=== PATIENT | female | born 1935 | race Caucasian/White ===

== ENCOUNTER 2016-08-21 06:05 | Inpatient (IN) | payer OTHER, BC ==
[2016-07-19 11:15] VITALS: BMI 25.0
--- NOTE | 2016-07-19 11:50 | PAT Medication Instructions ---
Service Date Jul 19, 2016. 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 Latanoprost (Xalatan 0.005% Oph Sravani), 1 DROPS OP HS Multivitamin (Multivitamin), 1 TAB PO QAM Omeprazole (Prilosec), 20 MG PO HS Polyethylene Glycol 3350 (Miralax), 17 GM PO PRN Simvastatin (Zocor), 20 MG PO HS [Timolol Oph], 1 DROP OPB QAM Medication Instructions For Your Scheduled Surgery - Hold the following medications the morning of surgery: Cholecalciferol (Vitamin D3), 1 TAB PO QAM Multivitamin (Multivitamin), 1 TAB PO QAM Docusate Sodium (Colace), 1 CAP PO PRN Ibuprofen (Advil), 400 MG PO TID PRN Polyethylene Glycol 3350 (Miralax), 17 GM PO PRN - Take the following medications the morning of surgery: [Timolol Oph], 1 DROP OPB QAM - Take the following medications as scheduled the night before surgery: Simvastatin (Zocor), 20 MG PO HS Latanoprost (Xalatan 0.005% Oph Sravani), 1 DROPS OP HS Omeprazole (Prilosec), 20 MG PO HS Docusate Sodium (Colace), 1 CAP PO PRN Ibuprofen (Advil), 400 MG PO TID PRN Polyethylene Glycol 3350 (Miralax), 17 GM PO PRN Nothing to eat or drink after midnight If you have any questions please call us at [phone] or [phone] or [phone]
[2016-07-19 12:50] LABS: BASO % 0.2 %; BASO ABS # 0.01 K/uL (0-0.2); COMPLETE YES; EOS % 1.7 %; HEMATOCRIT 37.2 % (37-47); IG% 0.2 %; LYMPH % 28.7 %; LYMPH ABS # 1.73 K/uL (1.2-3.4); MEAN CELL VOLUME 91.4 fL (80-100); MEAN CORPUSCULAR HEMOGLOBIN 30.2 pg (25-34); MEAN CORPUSCULAR HGB CONC 33.1 g/dl (32-36); MEAN PLATELET VOLUME 8.6 fL (7.4-10.4); MONO % 11.6 %; NEUT % 57.6 %; PLATELET COUNT 269 K/uL (130-400); RED BLOOD COUNT 4.07 M/uL (4.2-5.4); WHITE BLOOD COUNT 6.03 K/uL (4.8-10.8)
[2016-07-19 12:54] LABS: URINE APPEARANCE CLEAR (CLEAR); URINE BILIRUBIN NEG (NEG); URINE COLOR YELLOW; URINE NITRITE NEG (NEG); URINE SPECIFIC GRAVITY 1.014 (1.000-1.030); UROBILINOGEN NEG (NEG); ZZUR CULT IF INDIC CLEAN CATCH NO
[2016-07-19 12:55] LABS: ESTIMATED AVERAGE GLUCOSE 117 mg/dl; HA1C FLAG Normal (Normal)
[2016-07-19 13:01] LABS: PROTHROMBIN TIME (PATIENT) 11.1 SECONDS (9.0-12.0)
[2016-07-19 13:11] LABS: MANUAL MICROSCOPIC REQUIRED? NO; REVIEW REQ? NO
[2016-07-19 14:34] LABS: BUN/CREATININE RATIO 20.9 (10-20); CREATININE 0.67 mg/dl (0.60-1.20); POTASSIUM 4.3 mmol/L (3.5-5.1)
[2016-07-19 14:54] LABS: CALCIUM 8.7 mg/dl (8.5-10.1)
--- NOTE | 2016-08-20 10:16 | History and Physical ---
History & Physical Date & Time of Service: Aug 20, 2016 at 10:08 Chief Complaint: Right Shoulder Rotator Cuff Arthropathy Primary Care Physician: Christy Robins History of Present Illness Source: patient Chronic Rt shoulder pain and weakness, failed conservative treatment. Dx with RC arthropathy and GH arthritis. 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), 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 Level of Care Med/Surg Advanced Directives Existing Living Will: Yes Existing Power of Caustic Preparer: Yes Note Proceed w Rt shoulder Reversed TSA, biceps tenodesis.
[~2016-08-21] VITALS: Ht 152.4 cm; Wt 57.8 kg
[2016-08-21] VITALS (10 sets, daily range): BP systolic 105–145; BP diastolic 67–77; PULSE 60–90; TEMP 36.4–36.7; O2SAT 94–96; Ht 152.4 cm; Wt 57.8 kg
[~2016-08-21 06:05] MED LIST: ACETAMINOPHEN 500 MG TAB PO SCH; CEFAZOLIN 1000MG/55 ML D5W 55 ML IV SCH; CHOL1000 PO; CeleBREX 200 MG CAP PO SCH; DEXAMETHASONE 4 MG TAB PO SCH; DOCU-94 PO; FAMOTIDINE 20 MG TAB PO SCH; GABAPENTIN 300 MG CAP PO SCH; IBUP-1050 PO; LACTATED RINGER'S 1000ML 1,000 ML IV SCH; LATA0.5S OP; METOCLOPRAMIDE HCL 10 MG TAB PO SCH; MULT-506 PO; POLY335019 PO; PRLSR20 PO; SIMV20TA2 PO; [UNRECOGNIZED DRUG - OTHER] OPB
[2016-08-21] MEDS ORDERED: ROPIVACAINE 0.5% 5 MG/ML 30 ML VIAL ONE (06:37)
[2016-08-21] MEDS: LACTATED RINGER'S 1000ML IV SCH ×2 (06:44→08:40)
--- NOTE | 2016-08-21 07:16 | History & Physical Bridge Note ---
H&P Re-Evaluation Bridge Note: I have examined the patient, reviewed the History & Physical and in the interval since the performance of the History & Physical I have noted the following changes of clinical significance: No changes noted
[2016-08-21] MEDS ORDERED: ROCURONIUM BROMIDE 10 MG/ML 5 ML VIAL ONE ×2 (07:54→08:49)
[2016-08-21] MEDS ORDERED: GLYCOPYRROLATE INJ 0.2 MG/ML VIAL ONE ×2 (07:54→08:49)
[2016-08-21] MEDS ORDERED: PROPOFOL IV EMULSION 10 MG/ML 20 ML VIAL IV ONE ×2 (07:54→08:49)
[2016-08-21] MEDS ORDERED: NEOSTIGMINE METHYLSULFATE 5 MG/5 ML SYR ONE ×2 (07:54→08:49)
[2016-08-21] MEDS ORDERED: LIDOCAINE HCL 2% 2 ML VIAL (20MG/ML) ONE ×2 (07:54→08:49)
[2016-08-21] MEDS ORDERED: DEXAMETHASONE SOD INJ 4 MG/ML VIAL ONE ×2 (07:54→08:49)
[2016-08-21] MEDS ORDERED: ONDANSETRON INJ 2 MG/ML 2 ML VIAL ONE ×2 (07:54→08:49)
[2016-08-21] MEDS ORDERED: FENTANYL CITRATE INJ 50 MCG/1 ML 2 ML VIAL ONE ×2 (07:55→08:49)
[2016-08-21] MEDS ORDERED: MIDAZOLAM HCL 1 MG/ML 2ML VIAL ONE ×3 (07:55→08:49)
[2016-08-21] MEDS ORDERED: BACITRACIN 50000 UNIT VIAL ONE (09:00)
[2016-08-21] MEDS ORDERED: SUCCINYLCHOLINE CHLORIDE 20 MG/ML 10 ML VIAL IV ONE (10:36)
[2016-08-21] MEDS ORDERED: LARYING-O-JET KIT (LTA) ONE ×2 (11:19)
--- NOTE | 2016-08-21 11:32 | [facility] Post Operative Brief Note ---
Immediate Operative Summary Operative Date Aug 21, 2016. Pre-Operative Diagnosis Right shoulder rotator cuff arthropathy, arthritis,biceps tenosynovitis Post-Operative Diagnosis same ,rotator cuff tear and bursitis subacromial Procedure(s) Performed Right Reverse Total Shoulder Arthroplasty Surgeon Dr. Dowling Tax Representative Surgeon(s) Noé Kuhn PA-C Estimated Blood Loss 50cc Findings rotator cuff tendinopathy with small rotator cuff tear marked subacromial bursitis Specimens A. Right humeral head Drains 2 hemovac Anesthesia general and regional Complication(s) None Disposition Recovery Room / PACU
[2016-08-21] MEDS ORDERED: MAGNESIUM HYDROXIDE SUSP 30 ML UDC PO PRN (11:45)
[2016-08-21] MEDS ORDERED: POLYETHYLENE (MIRALAX) 17 GM PACK PO PRN (11:45)
[2016-08-21] MEDS ORDERED: BISACODYL 10 MG SUPP PR PRN (11:45)
[2016-08-21] MEDS ORDERED: ONDANSETRON INJ 2 MG/ML 2 ML VIAL IV PRN (11:45)
[2016-08-21] MEDS ORDERED: SOD PHOSPHATE/SOD BIPHOSPHATE ENEMA 132 ML BTL PR PRN (11:45)
[2016-08-21] MEDS ORDERED: ZOLPIDEM TARTRATE 5 MG TAB PO PRN (11:45)
[2016-08-21] MEDS ORDERED: NALOXONE HCL 0.4 MG/1 ML VIAL/CARP IV PRN (11:45)
--- NOTE | 2016-08-21 12:21 | DIAGNOSTIC IMAGING REPORT ---
RIGHT SHOULDER MIN 2 VIEWS ROUTINE HISTORY:80 yearsFemale[age] shoulder surgery Right COMPARISON: None available. TECHNIQUE: Postoperative portable frontal and Y views of the scapula. FINDINGS: There is been recent reverse right total shoulder arthroplasty which appears to be in satisfactory position. There is no periprosthetic fracture identified. Surgical drains and expected soft tissue swelling and deep tissue air is seen about the shoulder along with skin nohemy. The imaged right lung field appears clear. IMPRESSION: Status post reverse total right shoulder arthroplasty with expected postoperative findings. The above report was generated using voice recognition software. It may contain grammatical, syntax or spelling errors. Electronically signed by: Jaciel Dee M.D. 08/21/2016 12:19 PM Dictated Date/Time: 08/21/2016 12:17 PM
--- NOTE | 2016-08-21 12:39 | Anesthesiology Progress Note ---
Anesthesia Post Op Note Date & Time Aug 21, 2016 at 12:39 Vital Signs Pain Intensity: 0 Vital Signs Past 12 Hours Date Time Temp Pulse Resp B/P (MAP) Pulse Ox O2 Delivery O2 Flow Rate FiO2 08/21/16 12:33 83 20 08/21/16 12:33 82 20 97 08/21/16 12:32 108/50 08/21/16 12:28 79 20 08/21/16 12:28 78 20 98 08/21/16 12:26 125/75 08/21/16 12:23 85 23 97 08/21/16 12:23 80 23 08/21/16 12:22 82 23 97 08/21/16 12:22 86 23 08/21/16 12:21 125/71 08/21/16 12:17 75 18 95 08/21/16 12:17 83 18 08/21/16 12:16 125/78 08/21/16 12:12 74 21 08/21/16 12:12 77 21 98 08/21/16 12:11 116/85 08/21/16 12:07 36.6 84 20 119/85 (92) 99 Mask 10 08/21/16 12:07 86 20 08/21/16 12:07 86 20 98 08/21/16 12:06 119/80 08/21/16 12:02 87 19 08/21/16 12:02 86 19 98 08/21/16 12:01 134/78 08/21/16 11:58 87 17 08/21/16 11:58 87 17 99 08/21/16 11:56 137/78 08/21/16 11:53 86 21 100 08/21/16 11:53 87 21 08/21/16 11:51 140/81 08/21/16 11:48 90 22 99 08/21/16 11:48 90 22 08/21/16 11:46 139/81 08/21/16 11:44 139/78 08/21/16 11:43 93 99 08/21/16 11:43 36.6 93 18 139/78 98 Mask 10 08/21/16 11:43 93 08/21/16 07:00 36.6 60 20 137/76 96 Room Air Notes Mental Status: alert / awake / arousable, participated in evaluation Pt Amnestic to Procedure: Yes Nausea / Vomiting: adequately controlled Pain: adequately controlled Airway Patency, RR, SpO2: stable & adequate BP & HR: stable & adequate Hydration State: stable & adequate Anesthetic Complications: no major complications apparent
[2016-08-21] MEDS: D5W AND 1/2NSS + 20MEQ KCL 1,000 ML IV SCH ×2 (13:55→23:38)
--- NOTE | 2016-08-21 16:22 | Medical Consult ---
Consultation Date of Consultation: Aug 21, 2016. Attending Physician: Perry Dowling M.D. Reason for Consultation: Medical Follow up following Right Shoulder5 Arthroplasty History of Present Illness &( years old Female without significant PMH and ongoing pain in right shoulder for a while.She underwent right shoulder arthroplasty today by Dr Suarez. She has had pre-op evaluation by her PCP and Pre-op tests results were reviewed by me . Following surgery she denies to have any significant symptoms-no CP ,palpitation ,SOB,No abdominal pain,nausea and or vomiting.Denies any problem with urine and or bowel habit. No Headache,blurred vision and no numbness and or tingling in extremities Past Medical/Surgical History Osteoarthritis,Osteoporosis,Hyperlipidemia,GERD,Abnormality of Gait Surgery: ARTHROPLASTY KNEE [place] [facility] [place] COLONOSCOPY, DIAGNOSTIC (RECTUM) N/A 10/06/2015 diverticulosis sigmoid colon/internal hemorrhoids/no recall d/t age/COLONOSCOPY FLEXIBLE PROXIMAL DIAGNOSTIC performed by Dell Cronin MD at ENDOSCOPY [facility] FEMUR FX, REPAIR 06/2008 [facility] [place]NEE ARTHROSCOPY, DIAGNOSTIC Left knee arthroscopy in 1979's and REMOVAL OF HEEL SPUR 1982 Heel Spur Removal REMOVAL OF TONSILS, UNDER AGE 13 REMOVE KNEE CARTILAGE, MED/LATERAL Knee meniscectomy, arthroscopic REMOVE TONSILS & ADENOIDS, UNDER 13 REPAIR BLADDER DEFECT resuspension REPAIR RUPTURED ROTATOR CUFF, ACUTE 1996 Rotator cuff repair TOTAL HYSTERECTOMY Social History Smoking Status: Former Smoker Alcohol Use: none Drug Use: none Marital Status: Allergies Coded Allergies: Shrimp (Verified Allergy, Unknown, UNKNOWN, 08/21/16) Morphine (Verified Adverse Reaction, Mild, ABDOMINAL PAIN, 08/21/16) Current Inpatient Medications Current Inpatient Medications Medications (Trade) Dose Ordered Sig/Berta Route Start Time Stop Time Status Last Admin Dose Admin Lactated Ringer's 1,000 ml @ 60 mls/hr [id number] IV 08/21/16 06:00 08/21/16 22:39 Cefazolin Sodium 55 ml @ 100 mls/hr PREOP IV 08/21/16 06:00 08/21/16 18:00 08/21/16 09:02 100 MLS/HR Acetaminophen (Tylenol Tab) 1,000 mg PREOP PO 08/21/16 06:00 08/21/16 18:00 08/21/16 07:19 1,000 MG Celecoxib (CeleBREX CAP) 200 mg PREOP PO 08/21/16 06:00 08/21/16 18:00 08/21/16 07:20 200 MG Dexamethasone (Decadron Tab) 8 mg PREOP PO 08/21/16 06:00 08/21/16 18:00 08/21/16 07:40 8 MG Famotidine (Pepcid Tab) 20 mg PREOP PO 08/21/16 06:00 08/21/16 18:00 08/21/16 07:20 20 MG Gabapentin (Neurontin Cap) 300 mg PREOP PO 08/21/16 06:00 08/21/16 18:00 08/21/16 07:19 300 MG Metoclopramide HCl (Reglan Tab) 10 mg PREOP PO 08/21/16 06:00 08/21/16 18:00 08/21/16 07:19 10 MG Lactated Ringer's 1,000 ml @ 15 mls/hr Q24H IV 08/21/16 06:00 08/21/16 18:00 08/21/16 06:43 15 MLS/HR Cholecalciferol (Vitamin D Tab) 1,000 inter.unit QAM PO 08/22/16 09:00 09/21/16 08:59 Latanoprost (Xalatan Oph Soln) 1 drops HS OP 08/21/16 21:00 09/20/16 20:59 Simvastatin (Zocor Tab) 20 mg HS PO 08/21/16 21:00 09/20/16 20:59 Polyethylene (Miralax Powder Packet) 17 gm DAILY PRN PO 08/21/16 11:45 09/20/16 11:44 Timolol Maleate (Timoptic 0.5% Oph Soln) 1 drops QAM OPB 08/22/16 09:00 09/21/16 08:59 Diphenhydramine HCl (Benadryl Cap) 25 mg Q8 PRN PO 08/21/16 11:45 09/20/16 11:44 Zolpidem Tartrate (Ambien Tab) 5 mg HSZ PRN PO 08/21/16 11:45 09/20/16 11:44 Ondansetron HCl (Zofran Inj) 4 mg Q6H PRN IV 08/21/16 11:45 09/20/16 11:44 Pantoprazole Sodium (Protonix Tab) 40 mg QAM PO 08/22/16 09:00 09/21/16 08:59 Potassium Chloride/Dextrose/ Sod Cl 1,000 ml @ 100 mls/hr Q10H IV 08/21/16 14:00 08/22/16 13:59 08/21/16 13:55 100 MLS/HR Oxycodone HCl (Roxicodone Immediate Rel Tab) `1-2 TABS FOR PAIN `1 TAB... Q4H PRN PO 08/21/16 11:45 09/04/16 11:44 Acetaminophen (Tylenol Tab) 1,000 mg Q8 PO 08/21/16 22:00 09/20/16 21:59 Naloxone HCl (Narcan Inj) 0.1 mg Q2M PRN IV 08/21/16 11:45 09/20/16 11:44 Magnesium Hydroxide (Milk Of Magnesia Susp) 30 ml Q6H PRN PO 08/21/16 11:45 09/20/16 11:44 Bisacodyl (Dulcolax Supp) 10 mg DAILY PRN MD 08/21/16 11:45 09/20/16 11:44 Sodium Biphosphate/ Sodium Phosphate (Fleet Enema) 132 ml DAILY PRN MD 08/21/16 11:45 09/20/16 11:44 Docusate Sodium (coLACE CAP) 100 mg BID PO 08/21/16 21:00 09/20/16 20:59 Multivitamins (Multivitamin Tab) 1 tab DAILY PO 08/22/16 09:00 09/21/16 08:59 Cefazolin Sodium 1000 mg/Dextrose 55 ml @ 100 mls/hr Q8H IV 08/21/16 18:00 08/22/16 02:32 Hydromorphone HCl (Dilaudid Inj) 0.5 mg Q3H PRN IV 08/21/16 11:45 09/04/16 11:44 Physical Exam Date Time Temp Pulse Resp B/P (MAP) Pulse Ox O2 Delivery O2 Flow Rate FiO2 08/21/16 15:45 36.4 74 16 117/76 (90) 96 Nasal Cannula 2.0 08/21/16 14:43 36.4 90 16 112/69 (83) 96 Nasal Cannula 2.0 08/21/16 13:54 36.7 80 18 112/75 (87) 96 Nasal Cannula 2.0 08/21/16 13:15 36.7 67 18 114/67 (83) 95 Nasal Cannula 2.0 08/21/16 12:45 95 Nasal Cannula 2.0 08/21/16 12:45 95 Nasal Cannula 2.0 08/21/16 12:33 83 20 08/21/16 12:33 82 20 97 08/21/16 12:32 108/50 08/21/16 12:28 79 20 08/21/16 12:28 78 20 98 08/21/16 12:26 125/75 08/21/16 12:23 85 23 97 08/21/16 12:23 80 23 08/21/16 12:22 82 23 97 08/21/16 12:22 86 23 08/21/16 12:21 125/71 08/21/16 12:17 75 18 95 08/21/16 12:17 83 18 08/21/16 12:16 125/78 08/21/16 12:12 74 21 08/21/16 12:12 77 21 98 08/21/16 12:11 116/85 08/21/16 12:07 36.6 84 20 119/85 (92) 99 Mask 10 08/21/16 12:07 86 20 08/21/16 12:07 86 20 98 08/21/16 12:06 119/80 08/21/16 12:02 87 19 08/21/16 12:02 86 19 98 08/21/16 12:01 134/78 08/21/16 11:58 87 17 08/21/16 11:58 87 17 99 08/21/16 11:56 137/78 08/21/16 11:53 86 21 100 08/21/16 11:53 87 21 08/21/16 11:51 140/81 08/21/16 11:48 90 22 99 08/21/16 11:48 90 22 08/21/16 11:46 139/81 08/21/16 11:44 139/78 08/21/16 11:43 93 99 08/21/16 11:43 36.6 93 18 139/78 98 Mask 10 08/21/16 11:43 93 08/21/16 07:00 36.6 60 20 137/76 96 Room Air General Appearance: no apparent distress Head: normocephalic, atraumatic Eyes: normal inspection ENT: normal ENT inspection Neck: supple Respiratory/Chest: chest non-tender, lungs clear Cardiovascular: regular rate, rhythm, no edema Abdomen/GI: normal bowel sounds, non tender, soft Back: normal inspection, no CVA tenderness Extremities/Musculoskelatal: normal inspection (Except Right shoulder is bandaged s/p arthroplasty) Neurologic/Psych: no motor/sensory deficits, alert, normal mood/affect Skin: normal color Assessment & Plan S/P Right Total Right Shoulder replacement POD #0 Management as per Ortho Clinically remains stable Hyperlipidemia Continue Statin GERD Asymptomatic Continue Prilosec OA/Osteoporosis Continue current medication Medically stable Will chest Labs tomorrow Morning
--- NOTE | 2016-08-21 16:46 | [facility] Operative Report ---
Operative Report Operative Date Aug 21, 2016. Pre-Operative Diagnosis Right shoulder rotator cuff arthropathy, arthritis,biceps tenosynovitis Post-Operative Diagnosis same, rotator cuff tear and subacroimial bursitis Procedure(s) Performed right shoulder reversed total shoulder replacement,biceps tenodesis,excision subacromial bursa,bone grafting of humeral bone cyst with humeral head autograft Surgeon Dr. Dowling Weaver Apprentice Surgeon(s) Noé Kuhn PA-C Estimated Blood Loss 50cc Findings Grade 4 DJD glenohumeral joint rotator cuff tendinopathy with full thickness rotator cuff tear with fluid extending through tear into a large subacromial bursal effusion with subacromial bursitis with chronic tenosynovitis biceps tendon with degenerative large bone cyst in the humeral head extending into the proximal metaphysis Specimens A. Right humeral head Drains 2 hemovac Anesthesia general and regional Complication(s) None Disposition Recovery Room / PACU Indications Severe DJD glenohumeral joint rotator cuff tendinopathy biceps tenosynovitis chronic Description of Procedure The patient was taken to the operating room and anesthetized under regional block and general anesthetic. The patient was positioned on the operating table in a 30 beachchair position with a towel roll under the medial border of the right scapula. The arm was draped free to be able to manipulate the shoulder as needed. The right upper extremity was prepped and draped in usual sterile fashion. Exam demonstrated [id number] crepitation glenohumeral joint limited range of motion with 70 of abduction and forward elevation with external rotation to 30. An anterior deltopectoral approach was performed. A longitudinal incision was made in the deltopectoral interval. The skin was incised. Subcutaneous flaps were elevated off the fascia. The cephalic vein was dissected out and retracted lateral with the deltoid. The clavipectoral fascia was divided at the lateral margin of the conjoined tendon and extended up to the CA ligament. The following findings were noted there was a large subacromial bursal effusion overlying a full-thickness rotator cuff tear which communicated with the glenohumeral joint. There was rotator cuff tendinopathy of the infraspinatus and the tear was in the posterior supraspinatus. There was significant biceps tenosynovitis noted the subscapularis tendon was still intact. Intra-articular findings demonstrated grade 4 DJD: Humeral joint with eburnated bone humeral head. There is also a large cyst in humeral head extending into the metaphysis which was identified later in the case. This appeared to be a benign degenerative lesion.. The upper centimeter of the pectoralis was released for inferior exposure. The biceps tendon was tenodesed to the pectoralis tendon with #2 FiberWire. The proximal biceps was resected. The subscapularis tendon was taken down off the lesser tuberosity using a subperiosteal dissection. A #1 Vicryl traction suture was placed into the free end of the subscapularis tendon and capsule. The subscapular muscle fibers were split longitudinally at the level of the circumflex vessels. The circumflex vessels were identified and tied off with silk ties and divided laterally. A Kitner elevator was used to free up the inferior fibers of the subscapularis off of the capsule. The capsule was divided with Singh scissors down to the glenoid released off the anterior glenoid and the rotator interval was released to meet the capsular release and a 360 release of the subscapularis was accomplished. We did identify the axillary nerve tug test and protected with the blunt Hohmann retractor. A Fukuda retractor was placed into the joint. Glenoid findings demonstrated concentric wear of the glenoid with severe arthritic changes.. The labrum and biceps tendon was resected. An anterior-inferior and posterior inferior capsular release were performed with electrocautery and a Oleary elevator on bone with the nerve protected inferiorly by the retractor. Attention was then taken to the humeral preparation. The cutting guide was placed into the humeral head. It was positioned at 20 of retroversion. Oscillating saw was used to resect the humeral head giving the cut above the level of the posterior rotator cuff insertion site. Some of the supra-space tendon was released for exposure. The humeral head was then retracted posterior to the glenoid. The glenoid was sized for a 36 mm glenoid sphere and a 25 mm baseplate. The guide for the baseplate was positioned in a 10 inferior tilt and the central drill hole was made. The reamer for the 25 mm baseplate was used. The central drill was widened for the peg. The 25 mm baseplate was impacted into position. The plate was transfixed with superior and inferior locking screws and anterior and posterior compression screws with stable fixation. The fan reamer was used for the 36 millimeter glenoid sphere. After irrigation the glenoid sphere was impacted onto the baseplate and the screw was tightened. Fixation was assessed is stable. Humeral preparation was then performed. A centralizing awl was used followed by broaches up to a size 4 long stem. This had the appropriate fit and fill. The trial stem was left in place wi A +0 mm reversed tray with high offset was then placed. It was rotated into appropriate position. A trial reduction was performed. A 6 mm trial insert demonstrated good stability and no shuck. The trials were removed. 3 drill holes are made into the harder bone in the bicipital groove area and 3 #5 FiberWire sutures were placed transosseously. The canal was irrigated with antibiotic solution with bacitracin. The final component was assembled. The final component was the Ascend flex long PTC humeral stem size 4b. Prior to fully inserting the stem used bone graft harvested from the humeral head and impacted into the large cystic areas in the metaphysis to get a better press-fit fixation This was then impacted into the humerus with a tight press-fit. It was reduced to the glenoid sphere. Stability was verified. Subscapularis was repaired with the # 5 FiberWire sutures using Jeff-Ken suture technique. Lateral row soft tissue repair was performed with #2 FiberWire [id number] sutures. Some of the sutures of the upper subscapularis were passed through the supraspinatus and anterior infraspinatus as well to repair the anterior to the posterior cuff tissue. The pectoralis was repaired with #2 FiberWire [id number] sutures reinforcing the biceps tendon tenodesis. The arm was taken through a range of motion which demonstrated 120 forward elevation 40 external rotation at 45 of abduction and 90 of abduction.. The implant was stable through this range of motion tested. The wound was copiously irrigated. 2 Hemovac drains were placed. The deltopectoral interval was closed with [id number] #1 Vicryl sutures. The subcutaneous tissues were closed with 2-0 Vicryl sutures. The skin was closed with nohemy. Sterile dressings were applied and a shoulder immobilizer. Noé FOUNTAIN, My physician catering administrative assistant assisted in the procedure to the entire procedure including patient positioning arm positioning prepping and draping soft tissue retraction insert management suture management and perform the subcutaneous and skin closure and will dissipate in the postoperative care of the patient. I attest to the content of the Intraoperative Record and any orders documented therein. Any exceptions are noted below.
[2016-08-21] MEDS: CEFAZOLIN IV 1,000 MG in DEXTROSE 5% 50ML 50 ML IV SCH (18:03)
[2016-08-21] MEDS: DOCUSATE SODIUM 100 MG CAP PO SCH (21:09)
[2016-08-21] MEDS: SIMVASTATIN 20 MG TAB PO SCH (21:09)
[2016-08-21] MEDS: LATANOPROST 0.005% OP SOLN 2.5 ML BTL OP SCH (21:19)
[2016-08-21] MEDS: ACETAMINOPHEN 500 MG TAB PO SCH (21:40)
[2016-08-21] MEDS ORDERED: PANTOprazole SOD 40 MG TAB PO SCH (22:00)
[2016-08-22] VITALS (7 sets, daily range): BP systolic 109–130; BP diastolic 64–77; PULSE 65–82; TEMP 36.4–36.7; O2SAT 91–95
[2016-08-22] MEDS ORDERED: NURSING VERBAL MED ORDER ONE (01:37)
[2016-08-22] MEDS: CEFAZOLIN IV 1,000 MG in DEXTROSE 5% 50ML 50 ML IV SCH (01:45)
[2016-08-22] MEDS: OXYCODONE HCL IR 5 MG TAB (IMMEDIATE RELEASE) PO PRN ×4 (01:50→21:41)
[2016-08-22] MEDS: HYDROmorphone INJ 0.5 MG/0.5 ML SYR IV PRN ×2 (06:04→13:21)
[2016-08-22] MEDS: ACETAMINOPHEN 500 MG TAB PO SCH ×3 (06:04→21:32)
[2016-08-22 06:15] LABS: HEMATOCRIT 34.8 % (37-47); MEAN CELL VOLUME 89.7 fL (80-100); MEAN CORPUSCULAR HEMOGLOBIN 30.2 pg (25-34); MEAN CORPUSCULAR HGB CONC 33.6 g/dl (32-36); MEAN PLATELET VOLUME 8.4 fL (7.4-10.4); PLATELET COUNT 231 K/uL (130-400); RED BLOOD COUNT 3.88 M/uL (4.2-5.4); WHITE BLOOD COUNT 14.46 K/uL (4.8-10.8)
[2016-08-22 06:47] LABS: BUN/CREATININE RATIO 15.5 (10-20); CREATININE 0.77 mg/dl (0.60-1.20); POTASSIUM 4.3 mmol/L (3.5-5.1)
[2016-08-22] MEDS: DOCUSATE SODIUM 100 MG CAP PO SCH ×2 (07:50→21:31)
[2016-08-22] MEDS: CHOLECALCIFEROL 1000 INTER.UNIT TAB PO SCH (07:50)
[2016-08-22] MEDS: MULTIVITAMIN TAB PO SCH (07:50)
[2016-08-22] MEDS: TIMOLOL MALEATE 0.5% OP SOLN 5 ML BTL OPB SCH (07:50)
[2016-08-22] MEDS ORDERED: PANTOprazole SOD 40 MG TAB PO SCH ×2 (09:00→21:00)
--- NOTE | 2016-08-22 09:59 | Anesthesiology Progress Note ---
Anesthesia Post Op Note Date & Time Aug 22, 2016 at 09:58 Vital Signs Pain Intensity: 8.0 Vital Signs Past 12 Hours Date Time Temp Pulse Resp B/P (MAP) Pulse Ox O2 Delivery O2 Flow Rate FiO2 08/22/16 08:07 36.5 71 14 130/64 (86) 93 Room Air 08/22/16 08:02 95 Room Air 08/22/16 03:13 36.6 65 18 120/69 (86) 93 Room Air 08/21/16 23:30 Room Air 08/21/16 22:55 36.5 76 18 105/68 (80) 95 Room Air Notes Mental Status: alert / awake / arousable, participated in evaluation Pt Amnestic to Procedure: Yes Nausea / Vomiting: adequately controlled Pain: adequately controlled Airway Patency, RR, SpO2: stable & adequate BP & HR: stable & adequate Hydration State: stable & adequate Anesthetic Complications: no major complications apparent
--- NOTE | 2016-08-22 11:17 | Orthopedic Progress Note ---
Orthopedic Progress Note Date of Service Aug 22, 2016. Subjective Post OP Day: 1 Reports: feeling well, pain controlled w PO medications, Denies: complaints, chest pain, SOB, nausea / vomiting, light headedness, calf pain Objective calves soft nontender, N/V intact, capillary refill less than 2 sec., dressing C /D/I, A&O x3 Sling in tact, fingers mobile. Date Time Temp Pulse Resp B/P (MAP) Pulse Ox O2 Delivery O2 Flow Rate FiO2 08/22/16 11:06 93 Room Air 08/22/16 08:07 36.5 71 14 130/64 (86) 93 Room Air 08/22/16 08:02 95 Room Air 08/22/16 03:13 36.6 65 18 120/69 (86) 93 Room Air 08/21/16 23:30 Room Air 08/21/16 22:55 36.5 76 18 105/68 (80) 95 Room Air 08/21/16 19:52 36.6 87 16 145/77 (99) 94 Room Air 08/21/16 18:10 94 Room Air 08/21/16 15:45 36.4 74 16 117/76 (90) 96 Nasal Cannula 2.0 08/21/16 15:05 96 Nasal Cannula 2.0 08/21/16 14:43 36.4 90 16 112/69 (83) 96 Nasal Cannula 2.0 08/21/16 13:54 36.7 80 18 112/75 (87) 96 Nasal Cannula 2.0 08/21/16 13:15 36.7 67 18 114/67 (83) 95 Nasal Cannula 2.0 08/21/16 12:45 95 Nasal Cannula 2.0 08/21/16 12:45 95 Nasal Cannula 2.0 08/21/16 12:33 83 20 08/21/16 12:33 82 20 97 08/21/16 12:32 108/50 08/21/16 12:28 79 20 08/21/16 12:28 78 20 98 08/21/16 12:26 125/75 08/21/16 12:23 85 23 97 08/21/16 12:23 80 23 08/21/16 12:22 82 23 97 08/21/16 12:22 86 23 08/21/16 12:21 125/71 08/21/16 12:17 75 18 95 08/21/16 12:17 83 18 08/21/16 12:16 125/78 08/21/16 12:12 74 21 08/21/16 12:12 77 21 98 08/21/16 12:11 116/85 08/21/16 12:07 36.6 84 20 119/85 (92) 99 Mask 10 08/21/16 12:07 86 20 08/21/16 12:07 86 20 98 08/21/16 12:06 119/80 08/21/16 12:02 87 19 08/21/16 12:02 86 19 98 08/21/16 12:01 134/78 08/21/16 11:58 87 17 08/21/16 11:58 87 17 99 08/21/16 11:56 137/78 08/21/16 11:53 86 21 100 08/21/16 11:53 87 21 08/21/16 11:51 140/81 08/21/16 11:48 90 22 99 08/21/16 11:48 90 22 08/21/16 11:46 139/81 08/21/16 11:44 139/78 08/21/16 11:43 93 99 08/21/16 11:43 36.6 93 18 139/78 98 Mask 10 08/21/16 11:43 93 Laboratory Results 24 Hours: Test 08/22/16 05:30 Hematocrit 34.8 % Hemoglobin 11.7 g/dL Assessment & Plan Assessment: POD #1, Right reversed TSA, biceps tenodesis Plan: Limited PT/ OT as ordered D/C planning- Rehab As per medicine Inhouse Planning Pain Management: Morphine, PO Tylenol, Oxy IR DVT Prophylaxis: SCDs, ASA Discharge Planning Discharge Planning: home Pain Management: PO Tylenol, Oxy IR DVT Prophylaxis: TEDs, ASA
--- NOTE | 2016-08-22 17:05 | Progress Note ---
Internal Med Progress Note Date of Service: Aug 22, 2016. Provider Documentation: SUBJECTIVE: The patient was seen and examined Minimal pain in right Shoulder No other complaints OBJECTIVE: Vital Signs-as noted below Exam: General-no distress at rest Eyes-normal ENT-normal Neck-supple Lungs-clear to ausucltate bilaterally Heart-Regular Abdomen-Benign Extremities-No edema Neuro-AAOx3 Lab data as noted below. ASSESSMENT & PLAN: S/P Right Total Right Shoulder replacement POD #1 Management as per Ortho Clinically remains stable Awaiting placement Hyperlipidemia Continue Statin GERD Asymptomatic Continue Prilosec OA/Osteoporosis Continue current medication Medically stable Will chest Labs tomorrow Morning-WCC is slightly high-expected otherwise OK Vital Signs: Date Time Temp Pulse Resp B/P (MAP) Pulse Ox O2 Delivery O2 Flow Rate FiO2 08/22/16 15:37 36.7 82 18 109/77 (88) 95 Room Air 08/22/16 11:48 36.6 65 16 121/77 (92) 91 Room Air 08/22/16 11:06 93 Room Air 08/22/16 08:07 36.5 71 14 130/64 (86) 93 Room Air 08/22/16 08:02 95 Room Air 08/22/16 03:13 36.6 65 18 120/69 (86) 93 Room Air 08/21/16 23:30 Room Air 08/21/16 22:55 36.5 76 18 105/68 (80) 95 Room Air 08/21/16 19:52 36.6 87 16 145/77 (99) 94 Room Air 08/21/16 18:10 94 Room Air Lab Results: Results Past 24 Hours Test 08/22/16 05:30 Range/Units White Blood Count 14.46 4.8-10.8 K/uL Red Blood Count 3.88 4.2-5.4 M/uL Hemoglobin 11.7 12.0-16.0 g/dL Hematocrit 34.8 37-47 % Mean Corpuscular Volume 89.7 80-100 fL Mean Corpuscular Hemoglobin 30.2 25-34 pg Mean Corpuscular Hemoglobin Concent 33.6 32-36 g/dl RDW Standard Deviation 42.4 36.4-46.3 fL RDW Coefficient of Variation 13.0 11.5-14.5 % Platelet Count 231 130-400 K/uL Mean Platelet Volume 8.4 7.4-10.4 fL Sodium Level 138 136-145 mmol/L Potassium Level 4.3 3.5-5.1 mmol/L Chloride Level 106 98-107 mmol/L Carbon Dioxide Level 22 21-32 mmol/L Anion Gap 10.0 3-11 mmol/L Blood Urea Nitrogen 12 7-18 mg/dl Creatinine 0.77 0.60-1.20 mg/dl Est Creatinine Clear Calc Drug Dose 47.2 ml/min Estimated GFR () 85.1 Estimated GFR (Non- 73.4 BUN/Creatinine Ratio 15.5 10-20 Random Glucose 125 70-99 mg/dl Calcium Level 9.0 8.5-10.1 mg/dl
[2016-08-22] MEDS: LATANOPROST 0.005% OP SOLN 2.5 ML BTL OP SCH (21:30)
[2016-08-22] MEDS: SIMVASTATIN 20 MG TAB PO SCH (21:31)
[2016-08-23 05:43] VITALS: BP 125/78; PULSE 94; TEMP 36.4; O2SAT 90
[2016-08-23] MEDS: ACETAMINOPHEN 500 MG TAB PO SCH ×2 (05:49→13:48)
[2016-08-23 06:59] LABS: HEMATOCRIT 34.8 % (37-47); MEAN CELL VOLUME 92.1 fL (80-100); MEAN CORPUSCULAR HEMOGLOBIN 30.7 pg (25-34); MEAN CORPUSCULAR HGB CONC 33.3 g/dl (32-36); MEAN PLATELET VOLUME 8.8 fL (7.4-10.4); PLATELET COUNT 209 K/uL (130-400); RED BLOOD COUNT 3.78 M/uL (4.2-5.4); WHITE BLOOD COUNT 9.52 K/uL (4.8-10.8)
[2016-08-23 07:29] LABS: BUN/CREATININE RATIO 23.4 (10-20); CALCIUM 8.8 mg/dl (8.5-10.1); CREATININE 0.83 mg/dl (0.60-1.20); POTASSIUM 4.1 mmol/L (3.5-5.1)
[2016-08-23] MEDS: MULTIVITAMIN TAB PO SCH (07:33)
[2016-08-23] MEDS: DOCUSATE SODIUM 100 MG CAP PO SCH (07:33)
[2016-08-23] MEDS: CHOLECALCIFEROL 1000 INTER.UNIT TAB PO SCH (07:33)
[2016-08-23] MEDS: TIMOLOL MALEATE 0.5% OP SOLN 5 ML BTL OPB SCH (07:33)
[2016-08-23] MEDS: OXYCODONE HCL IR 5 MG TAB (IMMEDIATE RELEASE) PO PRN (07:36)
[2016-08-23 08:11] VITALS: BP 120/76; PULSE 86; TEMP 36.6; O2SAT 93
--- NOTE | 2016-08-23 08:24 | Orthopedic Progress Note ---
Orthopedic Progress Note Date of Service Aug 23, 2016. Subjective Post OP Day: 2 Reports: feeling well, pain controlled w PO medications, Denies: complaints, chest pain, SOB, nausea / vomiting, light headedness, calf pain Objective calves soft nontender, N/V intact, capillary refill less than 2 sec., incision C /D/I, A&O x3 Sling in tact, fingers mobile. Date Time Temp Pulse Resp B/P (MAP) Pulse Ox O2 Delivery O2 Flow Rate FiO2 08/23/16 08:11 36.6 86 18 120/76 (91) 93 Room Air 08/23/16 07:30 Room Air 08/23/16 05:43 36.4 94 16 125/78 (94) 90 Room Air 08/22/16 23:21 36.4 77 16 120/74 (89) 94 Room Air 08/22/16 19:15 Room Air 08/22/16 16:00 Room Air 08/22/16 15:37 36.7 82 18 109/77 (88) 95 Room Air 08/22/16 11:48 36.6 65 16 121/77 (92) 91 Room Air 08/22/16 11:06 93 Room Air Laboratory Results 24 Hours: Test 08/23/16 06:06 Hematocrit 34.8 % Hemoglobin 11.6 g/dL Assessment & Plan Assessment: POD #2, Right reversed TSA, biceps tenodesis Plan: Limited PT/ OT as ordered D/C planning- Rehab today As per medicine Inhouse Planning Pain Management: Morphine, PO Tylenol, Oxy IR DVT Prophylaxis: SCDs, ASA Discharge Planning Discharge Planning: home Pain Management: PO Tylenol, Oxy IR DVT Prophylaxis: TEDs, ASA
[2016-08-23] MEDS ORDERED: RXC5 PO (08:28)
[2016-08-23] MEDS ORDERED: POLY335019 PO (08:28)
[2016-08-23] MEDS ORDERED: [UNRECOGNIZED DRUG - OTHER] OPB (08:28)
[2016-08-23] MEDS ORDERED: CHOL1000 PO (08:28)
[2016-08-23] MEDS ORDERED: PRLSR20 PO (08:28)
[2016-08-23] MEDS ORDERED: SIMV20TA2 PO (08:28)
[2016-08-23] MEDS ORDERED: LATA0.5S OP (08:28)
[2016-08-23] MEDS ORDERED: DOCU-94 PO (08:28)
[2016-08-23] MEDS ORDERED: MULT-506 PO (08:28)
[2016-08-23] MEDS ORDERED: ACET-24 PO (08:28)
[2016-08-23] MEDS ORDERED: AMB5 PO (08:28)
--- NOTE | 2016-08-23 08:31 | Discharge Instructions ---
Discharge Instructions Date of Service Aug 23, 2016. Admission Reason for Admission: Right Shoulder Rotator Cuff Arthropathy Discharge Discharge Diagnosis / Problem: Right reversed TSA, biceps tenodesis Discharge Goals Goal(s): Improve function Activity Recommendations Activity Level: Assistance Required . Additional Information Patient informed of condition: Yes Advance Directives: Yes DNR: No Level of Care: Acute Rehab Communicable Disease: No Prognosis: Improving Instructions / Follow-Up Instructions / Follow-Up ACTIVITY RECOMMENDATIONS: SELF CARE INSTRUCTIONS AFTER TOTAL SHOULDER ARTHROPLASTY REVERSE A. You may do daily exercises as taught in physical therapy while in hospital. No lifting with the operative arm. B. You are to wear your sling/immobilizer at all times EXCEPT when performing your daily exercises and for hygiene purposes. C. You may perform dry, daily dressing changes. Please keep your incision covered. You may shower 48 hours after surgery. Do not apply soap or any ointment/ lotions directly over incision. Do not soak incision in bath tub/swimming pool. D. You may use ice as needed to operative shoulder. SPECIAL CARE INSTRUCTIONS: VERY IMPORTANT TO READ AND REVIEW A. There are a few signs you need to watch for after you are home. Call [facility] at [phone] if you experience any of the followin. Increased severe shoulder pain. Some pain is expected especially when you exercise. 2. Increased swelling in you shoulder or arm; pain or swelling in either upper extremity. 3. Any fluid drainage from the incision. 4. Shortness of breath or chest pain. B. Please call [facility] at [phone] if you have any questions or concerns about your operation or recovery. C. Call your physician if: 1. Temperature is greater than 101 degrees (F). 2. Pain is not relieved by prescribed pain medications. 3. Increase drainage or redness from incision. 4. Unanswered questions or concerns. FOLLOW UP VISIT: Please call [facility] at [phone] to schedule a follow up appointment with Dr. Dowling or his PA in 12-14 days from your surgery date. Does not need formal PT upon discharge to home. Home exercises only as instructed and per home instruction sheets. Current Hospital Diet Patient's current hospital diet: Regular Diet Discharge Diet Recommended Diet: Regular Diet Procedures Procedures Performed: Right Reverse Total Shoulder Arthroplasty Pending Studies Studies pending at discharge: no Laboratory Results Hemoglobin A1c Test 07/19/16 12:00 Range/Units Estimated Average Glucose 117 mg/dl Hemoglobin A1c 5.7 H 4.5-5.6 % Medical Emergencies . Who to Call and When: Medical Emergencies: If at any time you feel your situation is an emergency, please call 911 immediately. . Non-Emergent Contact Non-Emergency issues call your: Primary Care Provider . . "Provider Documentation" section prepared by Noé Kuhn. . Core Measure Problem Core Measures: None [place] Drug Monitoring Program Search Results: patient reviewed within database, no issues identified
[2016-08-23 08:35] VITALS: O2SAT 93
[2016-08-23 09:00] VITALS: BP 120/76; PULSE 86; TEMP 36.6; O2SAT 93
== END 2016-08-23 15:55 | DRG 483 ==
LOC: C.ACU 06:05 → C.3E 07:05 → ENRESERV 12:17
PROVIDERS: ADMIT Orthopaedic Surgery Sports Medicine; ATTEND Orthopaedic Surgery Sports Medicine
PROC: 0RRJ00Z Replacement of Right Shoulder Joint with Reverse Ball and Socket Synthetic Substitute, Open Approach (ICD-10-PCS; principal; 2016-08-21 08:30)
PROC: 0LM10ZZ Reattachment of Right Shoulder Tendon, Open Approach (ICD-10-PCS; principal; 2016-08-21 08:30)
DX: M19.011 Primary osteoarthritis, right shoulder (principal); M65.811 Other synovitis and tenosynovitis, right shoulder; M75.101 Unspecified rotator cuff tear or rupture of right shoulder, not specified as traumatic; M81.0 Age-related osteoporosis without current pathological fracture; E78.5 Hyperlipidemia, unspecified; K21.9 Gastro-esophageal reflux disease without esophagitis; Z79.899 Other long term (current) drug therapy; Z87.891 Personal history of nicotine dependence